=== PATIENT | male | born 1950 | race Caucasian/White ===

== ENCOUNTER 2016-06-12 11:58 | Observation (INO) | payer BC ==
[~2016-06-12] VITALS: Ht 175.3 cm; Wt 115.5 kg
[2016-06-12 13:38] LABS: EOSINOPHIL (%) 0.6 % (0-5); EOSINOPHIL COUNT 0.1 K/uL (0-0.3); HEMATOCRIT 41.2 % (38.0-50.0); IMMATURE GRANULOCYTE (%) 0.2 % (0.0-0.7); IMMATURE GRANULOCYTE COUNT 0.3 K/uL; LYMPHOCYTE COUNT 0.6 K/uL (1.0-2.8); MCH 30.5 PG (29.0-34.0); MCHC 36.4 G/DL (30.0-36.0); MCV 83.7 FL (86-99); MEAN PLAT.VOLUME 9.9 uM^3 (9.0-12.4); MONOCYTE (%) 3.4 % (3-12); MONOCYTE COUNT 0.4 K/uL (0-0.8); NEUTROPHIL (%) 91.2 % (45-76); NEUTROPHIL COUNT 11.9 K/uL (1.8-6.4); PLATELET COUNT 240 K/uL (156-360); RBC DIS.WIDTH-CV 12.9 % (11.8-14.6); RBC DIS.WIDTH-SD 38.5 % (39-53); RED BLOOD COUNT 4.92 M/uL (4.00-5.50)
[2016-06-12 13:45] LABS: D-DIMER ELISA 0.26 mg/L FEU (< 0.57)
[2016-06-12 13:47] LABS: CHLORIDE 104 mEq/L (99-109); POTASSIUM 4.4 mEq/L (3.7-5.4); SODIUM 138 mEq/L (136-147)
[2016-06-12 13:49] LABS: GLUCOSE 218 mg/dL (70-99)
[2016-06-12 13:51] LABS: ANION GAP 9 MEQ/L (2-14); TOTAL BILIRUBIN 0.9 mg/dL (0.0-1.0)
[2016-06-12 13:53] LABS: ALKALINE PHOSPHATASE 59 IU/L (3-129); GFR ESTIMATE (CALCULATED) > 59 mL/min/
[2016-06-12 13:54] LABS: UREA NITROGEN (BUN) 21 mg/dL (9-23)
[2016-06-12 13:57] LABS: TROP-I INTERPRETATION NEGATIVE; TROPONIN-I < 0.01 ng/mL (0.0-0.30)
[2016-06-12 15:26] LABS: ADD MIUA? YES; BILIRUBIN NEGATIVE; BLOOD NEGATIVE; COLOR YELLOW ((YELLOW)); GLUCOSE (STRIP) 50; KETONES NEGATIVE; LEUKOCYTES NEGATIVE; NITRITE NEGATIVE; PROTEIN (STRIP) NEGATIVE; SPECIFIC GRAVITY 1.024 (1.000-1.030); UROBILINOGEN 0.2 MG/DL (0.2-1.0)
[2016-06-12 15:55] LABS: BACTERIA NONE SEEN /HPF; EPITHELIAL CELLS RARE /HPF; HYALINE CASTS 15-20 /LPF; MUCUS TRACE /LPF; RED BLOOD CELLS 0-5 /HPF (0-5); WHITE BLOOD CELLS 0-5 /HPF (0-5)
[2016-06-12] MEDS ORDERED: TRULICITY0.75 MG/0. SC (17:43)
[2016-06-12] MEDS ORDERED: VALSARTAN-HCTZ1 EAC3 PO (17:43)
[2016-06-12] MEDS ORDERED: SERTRALINE HCL50 MG PO (17:43)
[2016-06-12] MEDS ORDERED: ESOMEPRAZOLE MA40 MG PO (17:43)
[2016-06-12] MEDS ORDERED: GLYBURIDE-METF1 EAC1 PO (17:44)
[2016-06-12] MEDS ORDERED: PRAVACHOL40 MG PO (17:44)
[2016-06-12] MEDS ORDERED: ADVIL200 MG PO (17:45)
[2016-06-12] MEDS ORDERED: ALEVE220 M2 PO (17:45)
[2016-06-12 17:55] VITALS: BP 125/60
[2016-06-12 18:52] LABS: POINT-OF-CARE METER ID UU13113831
[2016-06-12 19:00] VITALS: BP 135/75
[2016-06-12 20:20] LABS: TROP-I INTERPRETATION NEGATIVE; TROPONIN-I < 0.01 ng/mL (0.0-0.30)
[2016-06-12 22:28] LABS: POINT-OF-CARE METER ID UU13113831
[2016-06-13 00:20] VITALS: BP 135/70
[2016-06-13 02:01] LABS: POINT-OF-CARE METER ID UU13113831
[2016-06-13 02:14] LABS: TROP-I INTERPRETATION NEGATIVE; TROPONIN-I < 0.01 ng/mL (0.0-0.30)
[2016-06-13 04:25] VITALS: BP 138/68
[2016-06-13 06:10] LABS: POINT-OF-CARE METER ID UU13113831
[2016-06-13 07:03] LABS: HEMATOCRIT 39.7 % (38.0-50.0); MCH 29.7 PG (29.0-34.0); MCHC 34.5 G/DL (30.0-36.0); MCV 86.1 FL (86-99); MEAN PLAT.VOLUME 10.4 uM^3 (9.0-12.4); PLATELET COUNT 221 K/uL (156-360); RBC DIS.WIDTH-CV 13.2 % (11.8-14.6); RBC DIS.WIDTH-SD 41.3 % (39-53); RED BLOOD COUNT 4.61 M/uL (4.00-5.50)
[2016-06-13 07:12] LABS: ANION GAP 8 MEQ/L (2-14); CHLORIDE 104 MEQ/L (99-109); GFR ESTIMATE (CALCULATED) > 59 mL/min/; GLUCOSE 159 mg/dL (70-99); POTASSIUM 3.8 MEQ/L (3.7-5.4); SAMPLE HEMOLYSIS CHECK 0; SAMPLE ICTERIC CHECK 0; SAMPLE LIPEMIA CHECK 0; SODIUM 138 MEQ/L (136-147); UREA NITROGEN (BUN) 14 mg/dL (9-23)
[2016-06-13 08:10] VITALS: BP 113/57
[2016-06-13 10:16] LABS: POINT-OF-CARE METER ID UU13113831
[2016-06-13 11:45] VITALS: BP 127/76
[2016-06-13] MEDS ORDERED: ASPIRIN EC325 MG PO (11:59)
== END 2016-06-13 12:40 | disposition home or self-care (01) ==
LOC: EME → EDBD 11:58 → EME 11:58 → EDOF 16:35 → 5WEST 16:35
PROVIDERS: Emergency Medicine; Internal Medicine; Student in an Organized Health Care Education/Training Program
DX: R07.89 Other chest pain (principal); R55 Syncope and collapse; I10 Essential (primary) hypertension; E11.9 Type 2 diabetes mellitus without complications; K21.9 Gastro-esophageal reflux disease without esophagitis; E78.00 Pure hypercholesterolemia, unspecified; E78.5 Hyperlipidemia, unspecified; F32.9 Major depressive disorder, single episode, unspecified
CPT/HCPCS: 70450; 71010; 80048; 80053; 81003; 82948; 83605; 84484; 85025; 85027; 85379; 93005; 99281; 99285; G0378; J1650; J1815; J7030; J7040